=== PATIENT | male | born 1940 | race Caucasian/White ===

== ENCOUNTER 2017-08-07 06:33 | Observation (INO) | payer OTHER, MEDICARE ==
[2017-08-07] MEDS ORDERED: NS 1,000 ML IV ONE (06:45)
--- NOTE | 2017-08-07 06:47 | CPEKG ---
Heart Rate: 49 RR Interval: 1224 QRSD Interval: 86 QT Interval: 456 QTC Interval: 412 QRS [place]: 68 T Wave [place]: 60 EKG Severity - ABNORMAL ECG - EKG Impression: ATRIAL FLUTTER, A-RATE 306 Electronically Signed By: Renaldo Parson 07-Aug-2017 07:29:37
[2017-08-07 07:07] LABS: PLATELET COUNT 203 10^3/uL (150-400)
[2017-08-07 07:18] LABS: INR 1.05 (0.83-1.16); PROTIME(PATIENT) 13.9 SEC (12.0-15.0)
[2017-08-07] MEDS ORDERED: NS 500 ML IV ONE (07:18)
[2017-08-07] MEDS ORDERED: ONDANSETRON 4 MG/2 ML VIAL IVP ONE (07:18)
--- NOTE | 2017-08-07 07:25 | EDPHY ---
H & P Time Seen by Provider: 08/07/17 06:54 HPI/ROS: HPI Dizzy, weak. 76-year-old male by private vehicle with his . This patient reports that yesterday afternoon he started feeling"dizzy". He describes this as vertigo. He states he feels there is motion with there is no motion. He has had a difficult time walking because of this. He reports that when he woke up this morning he was achy all over particularly in his back in between his shoulder blades. He also states that he felt very fatigued and felt some chills. His vertigo continued this morning as well. He reports that it is not worse with head movement back in forth. He describes it is present when he is ambulating. He states that he has had a difficult time walking in a straight line and needs to support himself on the hallway wall. Denies headache. No focal weakness or altered sensation in his extremities. No change in vision. He has been nauseous but has not vomited. He also reports a recent exposure to ticks on his property within the last 2 days. He reports that he removed the sticks before the imbedded. ROS: Constitutional: No fever, as above. Eyes: No discharge. No changes in vision. ENT: No sore throat. No nasal congestion or rhinorrhea. Respiratory: No cough. No shortness of breath. Cardiac: No chest pain, no palpitations. Gastrointestinal: No abdominal pain, no vomiting, no diarrhea. As above. Genitourinary: No hematuria. No dysuria or increased frequency with urination. Musculoskeletal: No back pain. No neck pain. No myalgias or arthralgias. Skin: No rashes. Neurological: No headache. No focal weakness or altered sensation. As above. Past medical history: Prostatectomy, bladder cancer. He takes an aspirin daily. Otherwise he is not on any prescription medications. Social history: Drinks alcohol occasionally. Here with his . Nonsmoker. Physical Exam: General Appearance: Alert, no distress. Large man. This patient is responding to questions appropriately and in full sentences. This patient appears well-hydrated and well-nourished. Eyes: Pupils equal and round 3-2 mm bilaterally, no pallor or injection. No lid edema, erythema or injection. No nystagmus. No photophobia. ENT, Mouth: Mucous membranes are moist. The pharyngeal tissues are unremarkable. No edema or swelling. No asymmetry suggestive of abscess. No erythema or exudates. Respiratory: There are no retractions, lungs are clear to auscultation with good air movement bilaterally. Cardiovascular: Regular rate and rhythm. No murmur appreciated. Gastrointestinal: Abdomen is soft and nontender, no masses, bowel sounds normal. No focal tenderness at McBurney's point. No Wooten sign. Neurological: Motor sensory function is grossly intact. Cranial nerves are normal. Gait is slow and somewhat shuffling but he is able to walk in a straight line and his 's states that his gait is much improved in close to his baseline. Skin: Warm and dry, no rashes. Musculoskeletal: Neck is supple and nontender. No pain on flexion of his neck. Extremities are symmetrical. All joints range without pain or impingement. Psychiatric: No agitation. No depression. Database: EKG: EKG time is 6:45 a.m.; EKG shows a narrow complex regular probable a flutter with 5-1 av block verses sinus rhythm with a ventricular rate of 49. The MN, QRS, QT intervals are within normal limits. There are no ST-T wave changes indicative of ischemic or injury pattern. No evidence of right heart strain. Interpreted by me. Imaging: MRI of brain without contrast: No evidence of stroke. There is a subtle area involving the right mid brain and cathryn the could represent calcium a possibly hemorrhage. Reading radiologist recommends CT without contrast to further evaluate. Discussed results with staff radiologist Dr. Ra Lehman. Carotid artery Doppler ultrasounds: No hemodynamically significant stenosis of the carotid arteries. There is some plaque buildup. Right thyroid nodule is noted. Reading radiologist recommends follow-up imaging on this. Please see his report for further details. Case discussed with staff radiologist Dr. Serafin Hernandez. CT head without contrast: Negative. Results were discussed with staff radiologist Dr. Kobe Gonzalez. Procedures: Emergency department course: Vital signs reviewed. He is moderately hypertensive and bradycardic. Vital signs otherwise normal. IV was placed. He was placed on a equipment monitor phototypesetting. EKG obtained and reviewed by myself. He was started on IV normal saline with 500 cc to be given over the next hour. He will be given 4 mg of IV Zofran for nausea. He consents to MRI of brain and carotid Doppler imaging to assess for possible posterior distribution CVA. I discussed prophylaxis against Lyme and other tick-borne illnesses. I explained that these conditions were very rare in this area. He however would like prophylactic treatment. He was given a 1 time dose of 200 mg of doxycycline orally. 9:40 a.m., patient re-evaluated. Resting comfortably at this time. Repeat neurologic Assessment is nonfocal. ekg monitor currently shows narrow complex rhythm ventricular rate of 50. Results of emergency department workup discussed thoroughly with patient and family. His daughter is in the room and she is a former emergency department nurse here. Plan for admission secondary to atrial flutter with bradycardia discussed. All of their questions were answered. Hospitalist paged. Thyroid studies ordered. 9:45 a.m., spoke with on-call hospitalist, case discussed in detail. Patient accepted for admission by Dr. Camilo. Patient's remaining emergency department course under my care uneventful. Patient admitted to Dr. Camilo in stable condition. Differential Diagnosis: The differential diagnosis on this patient includes but is not limited to hypertensive encephalopathy, posterior CVA, peripheral vertigo. This represents a partial list of diagnoses considered. These considerations are based on history, physical exam, past history, reassessment and diagnostic testing. Smoking Status: Never smoked Constitutional: Initial Vital Signs Temperature (C) 36.6 C 08/07/17 06:42 Heart Rate 55 L 08/07/17 06:42 Respiratory Rate 16 08/07/17 06:42 Blood Pressure 162/124 H 08/07/17 06:42 O2 Sat (%) 96 08/07/17 06:42 O2 Delivery Mode Room Air Allergies/Adverse Reactions: No Known Allergies Allergy (Unverified 08/07/17 06:41) Home Medications: Medication Instructions Recorded Aspirin [Aspirin 81mg (*)] 08/07/17 Medical Decision Making - Diagnostics Imaging Results: Imaging Impressions Chest X-Ray 08/07/17 06:45 Impression: Portable chest negative for acute disease.. Brain MRI 08/07/17 07:19 Impression: 1. . Subtle gradient abnormality in the right midbrain and cathryn. Recommend noncontrast CT for further evaluation. 2. No acute cerebral infarction. Results discussed with Dr. Parson at 8:30 AM. Carotid Doppler Study 08/07/17 07:19 Impression: 1. Mild atherosclerotic disease bilateral carotid bulbs, left greater than right. 2. Velocities correlate to less than 30% diameter stenosis of the origin of the right internal carotid artery. 3. Velocities correlate to less than 30% diameter stenosis of the origin of the left internal carotid artery. 4. Bilateral vertebral arteries are patent with antegrade flow. 5. Right thyroid nodule measuring 2.1 cm. Recommend follow up ultrasound thyroid and ultrasound FNA biopsy. Measurement of carotid stenosis is based on velocity parameters that correlate the residual internal carotid diameter with [place] Symptomatic Carotid Endarterectomy Trial (NASCET) based stenosis levels. Findings and recommendations discussed with Emergency Department physician, Renaldo Parson MD at 9:09 a.m. on 08/07/2017. Final report concurs with initial preliminary interpretation. Head CT 08/07/17 08:38 Impression: Negative. No acute intracranial hemorrhage. Findings discussed with Emergency Department physician, Renaldo Parson MD at 08/07/2017 9:28. - Data Points Laboratory Results: Laboratory Results 08/07/17 06:56 08/07/17 06:56 08/07/17 08/07/17 08/07/17 07:07 06:56 06:56 WBC RBC Hgb Hct MCV MCH MCHC RDW Plt Count MPV Neut % (Auto) Lymph % (Auto) Mayes % (Auto) Eos % (Auto) Baso % (Auto) Nucleat RBC Rel Count Absolute Neuts (auto) Absolute Lymphs (auto) Absolute Monos (auto) Absolute Eos (auto) Absolute Basos (auto) Absolute Nucleated RBC Immature Gran % Immature Gran # PT 13.9 SEC SEC (12.0-15.0) INR 1.05 (0.83-1.16) APTT 28.7 SEC SEC (23.0-38.0) Sodium 146 mEq/L H mEq/L (135-145) Potassium 4.2 mEq/L mEq/L (3.3-5.0) Chloride 112 mEq/L H mEq/L (97-110) Carbon Dioxide 25 mEq/l mEq/l (22-31) Anion Gap 9 mEq/L mEq/L (8-16) BUN 19 mg/dL mg/dL (7-23) Creatinine 0.9 mg/dL mg/dL (0.7-1.3) Estimated GFR > 60 Glucose 97 mg/dL mg/dL (70-100) Calcium 9.0 mg/dL mg/dL (8.5-10.4) Magnesium 2.2 mg/dL mg/dL (1.6-2.3) Total Bilirubin 0.5 mg/dL mg/dL (0.1-1.4) Conjugated Bilirubin 0.2 mg/dL mg/dL (0.0-0.5) Unconjugated Bilirubin 0.3 mg/dL mg/dL (0.0-1.1) AST 17 IU/L IU/L (17-59) ALT 15 IU/L L IU/L (21-72) Alkaline Phosphatase 53 IU/L IU/L (38-126) POC Troponin I 0.00 ng/mL ng/mL (0.00-0.08) Total Protein 6.4 g/dL g/dL (6.3-8.2) Albumin 3.8 g/dL g/dL (3.5-5.0) 08/07/17 06:56 WBC 5.61 10^3/uL 10^3/uL (3.80-9.50) RBC 4.81 10^6/uL 10^6/uL (4.40-6.38) Hgb 14.1 g/dL g/dL (13.7-17.5) Hct 42.5 % % (40.0-51.0) MCV 88.4 fL fL (81.5-99.8) MCH 29.3 pg pg (27.9-34.1) MCHC 33.2 g/dL g/dL (32.4-36.7) RDW 13.1 % % (11.5-15.2) Plt Count 203 10^3/uL 10^3/uL (150-400) MPV 10.1 fL fL (8.7-11.7) Neut % (Auto) 61.1 % % (39.3-74.2) Lymph % (Auto) 30.5 % % (15.0-45.0) Mayes % (Auto) 6.4 % % (4.5-13.0) Eos % (Auto) 1.6 % % (0.6-7.6) Baso % (Auto) 0.2 % L % (0.3-1.7) Nucleat RBC Rel Count 0.0 % % (0.0-0.2) Absolute Neuts (auto) 3.43 10^3/uL 10^3/uL (1.70-6.50) Absolute Lymphs (auto) 1.71 10^3/uL 10^3/uL (1.00-3.00) Absolute Monos (auto) 0.36 10^3/uL 10^3/uL (0.30-0.80) Absolute Eos (auto) 0.09 10^3/uL 10^3/uL (0.03-0.40) Absolute Basos (auto) 0.01 10^3/uL L 10^3/uL (0.02-0.10) Absolute Nucleated RBC 0.00 10^3/uL 10^3/uL (0-0.01) Immature Gran % 0.2 % % (0.0-1.1) Immature Gran # 0.01 10^3/uL 10^3/uL (0.00-0.10) PT INR APTT Sodium Potassium Chloride Carbon Dioxide Anion Gap BUN Creatinine Estimated GFR Glucose Calcium Magnesium Total Bilirubin Conjugated Bilirubin Unconjugated Bilirubin AST ALT Alkaline Phosphatase POC Troponin I Total Protein Albumin Medications Given: Discontinued Medications Doxycycline Hyclate (Doxycycline Hyclate) 200 mg PO EDNOW ONE PRN Reason: Protocol Stop: 08/07/17 08:17 Last Admin: 08/07/17 09:04 Dose: 200 mg Sodium Chloride (Ns) 1,000 mls @ 0 mls/hr IV EDNOW ONE; Wide Open PRN Reason: Protocol Stop: 08/07/17 06:46 Last Admin: 08/07/17 07:05 Dose: 1,000 mls Sodium Chloride (Ns) 500 mls @ 1,000 mls/hr IV EDNOW ONE PRN Reason: Protocol Stop: 08/07/17 07:47 Last Admin: 08/07/17 09:20 Dose: Not Given Ondansetron HCl (Zofran) 4 mg IVP EDNOW ONE Stop: 08/07/17 07:19 Last Admin: 08/07/17 07:54 Dose: 4 mg Point of Care Test Results: Chemistry 08/07/17 07:07 POC Troponin I 0.00 ng/mL ng/mL (0.00-0.08) Departure - Departure Disposition: [facility] Acute Clinical Impression: Vertigo, Bradycardia, Atrial flutter, Lightheaded Referrals: Behzad Fulton MD [Primary Care Provider] - As per Instructions
[2017-08-07] MEDS ORDERED: DOXYCYCLINE HYCLATE 100 MG CAP/TAB PO ONE (08:16)
[2017-08-07] MEDS ORDERED: ONDANSETRON 4 MG/2 ML VIAL IVP PRN (15:02)
[2017-08-07] MEDS ORDERED: ACETAMINOPHEN 325 MG TAB PO PRN (15:02)
[2017-08-07] MEDS ORDERED: ONDANSETRON DISINTEGRATING 4 MG TAB PO PRN (15:02)
--- NOTE | 2017-08-07 17:20 | PDGENHP ---
History and Physical - Chief Complaint Acute dizziness - History of Present Illness Primary care provider: Dr. Fulton HPI: 76-year-old male presents with acute dizziness characterized as unsteadiness with mild room spinning exacerbated by positional changes including sitting backwards and sitting forwards, but not affected by head movements with onset of symptoms on the morning of presentation. The patient reports that on the day prior to presentation he had associated generalized weakness, fatigue, chills, headache, myalgias located in his mid back. On the day of presentation, he reports that his ambulation was impaired secondary to his constellation of symptoms as well as his dizziness, nearly resulting in a fall. He was able to steady himself by placing his hand on the wall. He did not experience any overt trauma. After re-presented to the emergency department , he was placed on supplemental oxygen, and he believes that many of his symptoms were somewhat alleviated with this intervention. He also reports that he was experiencing some nausea which was alleviated with Zofran p.o. 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 He denies any overt rashes, denies any overt fevers, denies any overt chest pain palpitations or shortness of breath. History Information - Allergies/Home Medication List Allergies/Adverse Reactions: No Known Allergies Allergy (Unverified 08/07/17 06:41) Home Medications: Aspirin [Aspirin 81mg (*)] 81 mg PO HS 08/07/17 [Last Taken 08/06/17] I have personally reviewed and updated: family history, medical history, social history, surgical history - Past Medical History hyperlipidemia Additional medical history: Prostate cancer. Bladder cancer with chemotherapy - Surgical History Additional surgical history: Total prostatectomy. Localized bladder surgery. 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, continues to bow [place] at elevation Review of Systems Review of Systems: ROS: 10pt was reviewed & negative except for what was stated in HPI & below Constitutional: Reports: chills, weakness Muscolosketal: Reports: muscle pain Neurological: Reports: headache, other (Dizziness) Physical Exam Physical Exam: Temp Pulse Resp BP Pulse Ox 36.9 C 65 16 128/70 H 12 L 08/07/17 15:47 08/07/17 15:47 08/07/17 15:47 08/07/17 15:47 08/07/17 15:47 O2 (L/minute) 95 Constitutional: no apparent distress, appears nourished, not in pain Eyes: PERRL, anicteric sclera, EOMI Ears, Nose, Mouth, Throat: moist mucous membranes, hearing normal, ears appear normal, no oral mucosal ulcers Cardiovascular: regular rate and rhythym, no murmur, rub, or gallop, No edema Respiratory: no respiratory distress, no rales or rhonchi, clear to auscultation Gastrointestinal: normoactive bowel sounds, soft, non-tender abdomen, no palpable masses, No distension Skin: warm, other (Nontender well-circumscribed lipoma on the right back without any overlying erythema), No rash Musculoskeletal: full muscle strength, other (Full range of motion the neck without any tenderness or meningismus, no tenderness to palpation over the vertebral bodies or paraspinal muscles) Neurologic: AAOx3, sensation intact bilaterally, CN II-XII Intact, No weakness, No facial droop Psychiatric: interacting appropriately, not anxious, not encephalopathic, thought process linear Lymph, Heme, Immunologic: other (2 cm nontender bilateral submandibular lymph nodes without any anterior posterior or cervical lymphadenopathy) Lab Data & Imaging Review 08/07/17 06:56 08/07/17 06:56 WBC 5.61 10^3/uL (3.80-9.50) 08/07/17 06:56 RBC 4.81 10^6/uL (4.40-6.38) 08/07/17 06:56 Hgb 14.1 g/dL (13.7-17.5) 08/07/17 06:56 Hct 42.5 % (40.0-51.0) 08/07/17 06:56 MCV 88.4 fL (81.5-99.8) 08/07/17 06:56 MCH 29.3 pg (27.9-34.1) 08/07/17 06:56 MCHC 33.2 g/dL (32.4-36.7) 08/07/17 06:56 RDW 13.1 % (11.5-15.2) 08/07/17 06:56 Plt Count 203 10^3/uL (150-400) 08/07/17 06:56 MPV 10.1 fL (8.7-11.7) 08/07/17 06:56 Neut % (Auto) 61.1 % (39.3-74.2) 08/07/17 06:56 Lymph % (Auto) 30.5 % (15.0-45.0) 08/07/17 06:56 [place] % (Auto) 6.4 % (4.5-13.0) 08/07/17 06:56 Eos % (Auto) 1.6 % (0.6-7.6) 08/07/17 06:56 Baso % (Auto) 0.2 % (0.3-1.7) L 08/07/17 06:56 Nucleat RBC Rel Count 0.0 % (0.0-0.2) 08/07/17 06:56 Absolute Neuts (auto) 3.43 10^3/uL (1.70-6.50) 08/07/17 06:56 Absolute Lymphs (auto) 1.71 10^3/uL (1.00-3.00) 08/07/17 06:56 Absolute Monos (auto) 0.36 10^3/uL (0.30-0.80) 08/07/17 06:56 Absolute Eos (auto) 0.09 10^3/uL (0.03-0.40) 08/07/17 06:56 Absolute Basos (auto) 0.01 10^3/uL (0.02-0.10) L 08/07/17 06:56 Absolute Nucleated RBC 0.00 10^3/uL (0-0.01) 08/07/17 06:56 Immature Gran % 0.2 % (0.0-1.1) 08/07/17 06:56 Immature Gran # 0.01 10^3/uL (0.00-0.10) 08/07/17 06:56 PT 13.9 SEC (12.0-15.0) 08/07/17 06:56 INR 1.05 (0.83-1.16) 08/07/17 06:56 APTT 28.7 SEC (23.0-38.0) 08/07/17 06:56 Sodium 146 mEq/L (135-145) H 08/07/17 06:56 Potassium 4.2 mEq/L (3.3-5.0) 08/07/17 06:56 Chloride 112 mEq/L (97-110) H 08/07/17 06:56 Carbon Dioxide 25 mEq/l (22-31) 08/07/17 06:56 Anion Gap 9 mEq/L (8-16) 08/07/17 06:56 BUN 19 mg/dL (7-23) 08/07/17 06:56 Creatinine 0.9 mg/dL (0.7-1.3) 08/07/17 06:56 Estimated GFR > 60 08/07/17 06:56 Glucose 97 mg/dL (70-100) 08/07/17 06:56 Calcium 9.0 mg/dL (8.5-10.4) 08/07/17 06:56 Magnesium 2.2 mg/dL (1.6-2.3) 08/07/17 06:56 Total Bilirubin 0.5 mg/dL (0.1-1.4) 08/07/17 06:56 Conjugated Bilirubin 0.2 mg/dL (0.0-0.5) 08/07/17 06:56 Unconjugated Bilirubin 0.3 mg/dL (0.0-1.1) 08/07/17 06:56 AST 17 IU/L (17-59) 08/07/17 06:56 ALT 15 IU/L (21-72) L 08/07/17 06:56 Alkaline Phosphatase 53 IU/L (38-126) 08/07/17 06:56 POC Troponin I 0.00 ng/mL (0.00-0.08) 08/07/17 07:07 Total Protein 6.4 g/dL (6.3-8.2) 08/07/17 06:56 Albumin 3.8 g/dL (3.5-5.0) 08/07/17 06:56 TSH 2.950 uIU/mL (0.465-4.680) 08/07/17 06:56 Free T4 0.86 ng/dL (0.59-2.19) 08/07/17 06:56 Free T3 3.57 pg/mL (2.77-5.27) 08/07/17 06:56 Visualized and Interpreted Chest x-ray results: Yes Chest X-Ray results: no infiltrate Visualized and Interpreted EKG results: Yes EKG Interpretation: Positive for: other (Sinus bradycardia, but was previously read as atrial flutter is most likely artifact) Assessment & Plan Assessment: 76-year-old male presenting with dizziness secondary to suspected viral syndrome Plan: 1. Dizziness. Symptoms consist of a combination of vertiginous as well as generalized weakness, most likely secondary to viral syndrome -carotid ultrasound demonstrating no significant stenosis -brain MRI demonstrating no evidence of CVA -EKG is not atrial flutter, I have discussed this with Dr. Trina Durand and we both agreed this is a sinus bradycardia with likely artifact -will monitor on telemetry overnight to ensure no tachy or [place] arrhythmias -will check orthostatics 2. Suspected viral syndrome. Acute, new problem this provider, further workup indicated. Constellation of symptoms include fatigue, chills, dizziness, myalgias, headache, all of which are most likely secondary to a viral syndrome -check respiratory viral panel -monitor evolution of symptoms and workup any significant focality 3. Thyroid nodule. Carotid ultrasound demonstrating an incidental 2.1 right- sided thyroid nodule -thyroid function test completely normal -calcium completely normal, suggesting this is not underlying parathyroid tumor -discussed with patient and , recommend outpatient ultrasound and fine- needle aspirate to be arranged by primary care provider 4. Suspected obstructive sleep apnea. Patient has not been overtly hypoxic throughout this hospitalization, and he does not require supplemental oxygen during the day -that being said, his habitus and history suggest that he may have sleep apnea, and I would recommend outpatient sleep study to be arranged through his primary care provider office -in the interim, the patient does not qualify or require supplemental oxygen, as the body's natural respiratory drive is 2 trigger of breath if the patient becomes apneic at night, thus making nocturnal hypoxia not a malignant condition 5. Hyperlipidemia. Reviewed outside records including most recent primary care provider labs demonstrating an LDL of 160, on 04/01/2017 -will recommend lipid lowering therapy to patient and his Diet. Regular Prophylaxis. High risk, Lovenox for Code. Full Disposition. Anticipated discharge 08/08, pending further workup of conditions as outlined above.
[2017-08-07] MEDS ORDERED: ASPIRIN 81 MG CHEWABLE TAB PO SCH (21:00)
[2017-08-08 07:58] LABS: PLATELET COUNT 194 10^3/uL (150-400)
[2017-08-08] MEDS ORDERED: ENOXAPARIN 40 MG/0.4 ML SYR SC SCH (09:00)
--- NOTE | 2017-08-08 10:07 | ASMTCASEMG ---
Living Arrangements What is your living Answers: With Spouse arrangement? Who do you live with? Type Of Residence What kind of residence do Answers: House you live in? Discharge Plan Comments Coordination Status Comments Notes: Pt is a 76 y/o man admitted for atrial flutter, bradycardia and lightheadedness. PT has been ordered and awaiting recommendations. Needs are TBD at this time. CM to follow. Plan: TBD Date Signed: 08/08/2017 10:06 AM Electronically Signed By:SHERICE Montoya
[2017-08-08 11:40] VITALS: BP 126/73
--- NOTE | 2017-08-08 14:38 | ECHO ---
[email or web address] [address] Main: [phone] Fax: Transthoracic Echocardiogram Name: MAGAN BARFIELD MR#: [id number] Study Date: 08/08/2017 Study Time: 01:47 PM Date of : 1940 Age: 76 year(s) Height: 182.9 cm (72 in.) Weight: 98.43 kg (217 lb.) BSA: 2.21 m2 Gender: Male Examination: Echo Indication: Eval LV Fx Image Quality: Contrast: Requested by: Naveen Camilo BP: 123 mmHg/73 mmHg Heart Rate: Rhythm: Indication: Eval LV Fx Procedure Staff Design Engineer: Marek Ro RDCS Reading Physician: Trina Durand MD Requesting Provider: Conclusions: Normal size left ventricle. No LV hypertrophy. Normal global systolic LV function. EF is 68 %. No regional wall motion abnormality. Grade 1 diastolic dysfunction (abnormal relaxation). Mildly dilated right ventricle. Normal RV function. No significant valvular disease. Unable to assess PA systolic pressure. No prior echo. Measurements: Chambers Valvular Assessment AV/MV Valvular Assessment TV/PV Normal Normal Normal Name Value Range Name Value Range Name Value Range Ao Zeinab (MM): 2.9 cm (2.2 cm-3.7 AV Vmax: 1.51 m/s (1 m/s-1.7 TR Vmax: 2.08 mm/s ( - ) cm) m/s) TR PGmax: 17 mmHg ( - ) IVSd (2D): 0.9 cm (0.6 cm-1.1 AV maxP mmHg ( - ) syst. PAP: 22 mmHg ( - ) cm) LVOT Vmax: 0.76 m/s (0.7 m/s-1.1 PV Vmax: 0.95 m/s (0.6 m/s-0.9 LVDd (2D): 4.5 cm (4.2 cm-5.9 m/s) m/s) cm) MV E Vmax: 0.68 m/s ( - ) PV PGmax: 4 mmHg ( - ) LVDs (2D): 2.8 cm (2.1 cm-4 MV A Vmax: 0.95 m/s ( - ) cm) MV E/A: 0.72 ( - ) LVPWd (2D): 1.0 cm (0.6 cm-1 cm) LVEF (2D): 68 (>=54 %) Continued Measurements: Chambers Valvular Assessment AV/MV Valvular Assessment TV/PV Name Value Name Value Name Value Patient: MAGAN BARFIELD Study Date: 08/08/2017 Page 1 of 2 01:47 PM LADs Lon.6 cm MV E' Septal: 0.05 m/s CVP (est.): 5 mmHg LA Area: 15.2 cm2 MV E/E' Septal: 14.80 LA Volume: 35 ml MV E/E' Lateral: 11.00 LA Volume Index: 15.8 ml/m2 Findings: Left Ventricle: Normal size left ventricle. No LV hypertrophy. Normal global systolic LV function. EF is 68 %. No regional wall motion abnormality. Grade 1 diastolic dysfunction (abnormal relaxation). Right Ventricle: Mildly dilated right ventricle. Normal RV function. Left Atrium: The left atrium is normal in size. Right Atrium: The right atrium is normal in size. Mitral Valve: The mitral valve is normal in appearance and function. Aortic Valve: The aortic valve is normal in appearance and function. There is no aortic valve regurgitation. Tricuspid Valve: The tricuspid valve appears normal. Pulmonic Valve: The pulmonic valve is normal in appearance and function. Aorta: The aorta is normal. Pericardium: No pericardial effusion. (No Signature Object) Patient: MAGAN BARFIELD Study Date: 08/08/2017 Page 2 of 2 01:47 PM [id number]
--- NOTE | 2017-08-08 15:55 | ASMTCMCOM ---
CM Note CM Note Notes: PT is recommending home w/ outpatient follow up. No other needs identified at this time. CM available for changes. Plan: Independent Date Signed: 08/08/2017 03:54 PM Electronically Signed By:SHERICE Montoya
--- NOTE | 2017-08-08 15:56 | ASMTLACE ---
LACE Length of stay for Answers: 1 day current admission Acuity / Level of Answers: No Care: Did the patient have an inpatient admission? Comorbidities - select Answers: Any tumor (including all that apply lymphoma or leukemia) # of Emergency department Answers: 1-2 visits in the last 6 months Score: 4 Date Signed: 08/08/2017 03:55 PM Electronically Signed By:SHERICE Montoya
--- NOTE | 2017-08-08 15:59 | PDDCSUM ---
Discharge Summary Discharge Summary: DISCHARGE SUMMARY FOLLOW-UP ITEMS: 1. Ultrasound-guided FNA of right thyroid nodule 2. Repeat liver panel in 6-8 weeks 3. Reassess for vertiginous symptoms 4. Order outpatient sleep study DATE OF ADMISSION: 08/07/2017 DATE OF DISCHARGE: 08/08/2017 DISCHARGE DIAGNOSES: 1. Suspected BPPV 2. Suspected viral syndrome 3. 2.1 cm right thyroid nodule 4. Suspected underlying sleep apnea 5. Chronic hyperlipidemia and mild carotid stenosis bilaterally CONSULTATIONS: Cardiology PROCEDURES / IMAGING: Echocardiogram demonstrating normal ejection fraction with normal wall motion, right ventricle mildly dilated with normal function, unable to assess pulmonary artery pressure, no significant valvular disease Brain MRI demonstrating no stroke Carotid ultrasound demonstrating 30% bilateral stenosis CHIEF COMPLAINT: Acute dizziness, headache, nausea, myalgias, chills SUBJECTIVE: Patient is feeling well at time discharge, he has not had any recurrence of his dizziness PHYSICAL EXAM ON DISCHARGE: Systolic blood pressure 100-120, heart rate 50-70, afebrile overnight, satting 96% on room air during his awake state, alert awake oriented x3, no apparent distress LABS ON DISCHARGE: ESR 2, CRP 7, creatinine 0.9, potassium 4.4, serum sodium 138, troponin negative x2, TSH 2.95, free T4 0.86, free T3 3.57, D-dimer 0.34 HOSPITAL COURSE BY PROBLEM: 1. Suspected BPPV. The patient's presenting symptom was dizziness, and this is most likely secondary to either BPPV or labyrinthitis. The patient reports that he has experienced this positional dizziness in the past, which would be more suggestive of BPPV, but this presentation seemed to be associated with symptoms of a viral precipitant, which would be more suggestive of labyrinthitis. He was ruled out for posterior circulatory defect with vertebral artery are ultrasounds, and was ruled out for CVA with brain MRI. He was ruled out for significant valvular abnormality with an echocardiogram, and was ruled out for malignant arrhythmia with telemetry monitoring demonstrating normal sinus mechanism during the entirety of his stay. He occasionally had PACs, but he had no evidence of atrial flutter on EKG or on telemetry. It should be noted that the a presenting EKG machine read indicated atrial flutter , but this is inaccurate, and has been personally interpreted by both myself and Dr. Durand. The patient will receive a prescription for as needed meclizine, and he should use this if he experiences intermittent recurrent symptoms. He should also follow up with his primary care provider for this issue. 2. Suspected viral syndrome. The patient presented with a constellation of symptoms most likely secondary to a mild viral syndrome, but it was not a particular precipitant with a negative respiratory viral panel and negative inflammatory markers. Most likely the cause was self-limited and did not result in significant infection. The patient is currently asymptomatic in the process has most likely completely resolved. 3. Suspected obstructive sleep apnea. The patient had intermittent episodes of hypoxia while sleeping, and has a strong history of snoring as well as recommendations from his primary care provider to undergo sleep study. We also recommend outpatient sleep study and we have educated the patient that treatment for possible sleep apnea will most likely result in significant improvement in daytime fatigue. 4. Thyroid nodule. Neck ultrasound for the carotids incidentally found 2.1 cm right thyroid nodule, and it warrants ultrasound-guided FNA. Recommend that this be performed as an outpatient. Thyroid function tests were unremarkable. 5. Chronic hyperlipidemia. Review of patient's outside lipid panel demonstrates an uncontrolled hyperlipidemia and his ultrasounds demonstrate mild carotid stenosis. Consequently, Dr. Durand and I recommended initiation of statin, the patient is interested in starting receive a statin 5 mg daily. He should have repeat lipid panel approximately 6-8 weeks. DISCHARGE MEDICATIONS: Please see official discharge medication reconciliation sheet in chart , continue home dose aspirin, add receive a statin 5 mg daily, add as needed meclizine. DISCHARGE INSTRUCTIONS: Please follow up with primary care provider next week and follow up the above- mentioned items.
--- NOTE | 2017-08-08 16:06 | GCON ---
[f rep st] CONSULTATION DATE OF CONSULTATION: 08/08/2017 CHIEF COMPLAINT: Dizziness. HISTORY OF PRESENT ILLNESS: We were asked by Dr. Camilo to visit with the patient. The patient is a pleasant 76-year-old male with dyslipidemia, untreated sleep apnea. He was brought to the ER by his family yesterday with 2 days of worsening dizziness. He felt very off balance when he tried to walk . He did not actually fall. He did not have syncope. He just felt very dizzy. He was not having c hest pain, dyspnea, or palpitations. He did have a little bit of a headache and felt slightly nausea loc. He has not had problems with lower extremity swelling. He had extensive brain imaging in the ER without evidence of stroke. His heart rate was on the low s clementina at about 50, but the rhythm was sinus. He has had negative cardiac enzymes. He does report that several days prior, he noticed some ticks on his body. He did not actually have a tick bite that he could see. In the ER, he did receive doxycycline prophylaxis. REVIEW OF SYSTEMS: A full 10-point review of systems was performed and is negative, except that whic h is outlined in the History of Present Illness. ALLERGIES: No known drug allergies. PAST MEDICAL HISTORY: 1. Sleep apnea, which the patient has previously elected not to treat. 2. Dyslipidemia. 3. Thyroid nodule discovered on recent imaging. 4. Bladder cancer. 5. History of prostatectomy. 6. Vre-[id number] carotid disease. OUTPATIENT MEDICATIONS: Aspirin 81 mg daily. SOCIAL HISTORY: The patient is . His family is involved in his care. His daughter is at the bedside. Does not smoke cigarettes. Drinks alcohol in moderation. FAMILY HISTORY: Not applicable to the current case. PHYSICAL EXAM: VITAL SIGNS: Blood pressure 126/73. He was not orthostatic by vital signs yesterday evening. Heart rate has been 50s to 70s. Oxygen saturation 94% on room air. He is afebrile. GENE RAL: Well-appearing older male in no acute distress. HEENT: Sclerae are clear and free of jaundice . Mucous membranes are moist. Normocephalic, atraumatic. CARDIOVASCULAR: JVP less than 10. Carot ids equal and 2+, without bruit. Regular rate and rhythm, without murmur, rub, or gallop. LUNGS: C lear, without wheeze, rhonchi, or rales. ABDOMEN: Soft, nontender, nondistended, without bruits, ma sses, hepatosplenomegaly. EXTREMITIES: Warm and well perfused, without cyanosis, clubbing, or edema . NEURO: Alert and oriented x3, without gross focal neurologic deficits. Appropriate mood and affe ct. LABORATORY DATA: CBC is essentially normal. ESR is 2. D-dimer is negative. INR is normal. Compre hensive metabolic panel is fairly normal. ER troponin and followup troponin are both negative. TSH, free T4 and free T3 are normal. CRP is 7.2. EKG reviewed by me shows sinus bradycardia, without ischemic changes. Chest x-ray reviewed by me shows no acute cardiopulmonary process. Echocardiogram reviewed by me: Normal LV size and systolic function, without regional wall motion ab normality, mildly dilated right ventricle with normal RV systolic function. No significant valvular disease. Unable to assess PA systolic pressure. Brain MRI: There is a subtle gradient abnormality in the right midbrain and cathryn. No acute stroke. Followup head CT: No acute findings. Carotid Doppler: Mild plaquing, without flow-limiting stenosis. Antegrade flow in bilateral vertebr al arteries. Incidentally noted right thyroid nodule. ASSESSMENT AND PLAN: A 76-year-old male with untreated sleep apnea, dyslipidemia, [id number] carotid disease. He presents with a couple of days of symptoms that sound most consistent with verti go. He has had negative troponins, a fairly unremarkable echo, except for mild RV dilation, which I think can be explained by his sleep apnea. He has had some sinus bradycardia and some sinus rhythm, and no significant arrhythmia on telemetry. 1. Dizziness: Most likely vertigo. No further cardiac testing at this time. Could see ENT as an o utpatient if symptoms recur. 2. Sleep apnea: He apparently was having desaturations and somnolence in the ER. He agrees to outp atient evaluation and management of this. 3. Dyslipidemia: Apparently a recent LDL was 160. He does have plaquing in his carotids. I would recommend primary prevention statin. LDL was 160 in March. He does have mild carotid artery plaq uing. I would recommend primary prevention statin. This can be initiated as an outpatient. 4. Thyroid nodule: This was seen on carotid ultrasound. He will have outpatient followup for this. Thank you for allowing us to participate in the patient's care. We will sign off. Please call with questions or concerns. /[id number]/MODL
== END 2017-08-08 16:25 | disposition home or self-care (01) ==
LOC: F2W 13:40
PROVIDERS: ADMIT Internal Medicine; ATTEND Internal Medicine
DX: R42 Dizziness and giddiness (principal); B34.9 Viral infection, unspecified; G47.33 Obstructive sleep apnea (adult) (pediatric); E04.1 Nontoxic single thyroid nodule; E78.5 Hyperlipidemia, unspecified; I25.10 Atherosclerotic heart disease of native coronary artery without angina pectoris; I65.23 Occlusion and stenosis of bilateral carotid arteries; Z85.51 Personal history of malignant neoplasm of bladder; Z85.46 Personal history of malignant neoplasm of prostate; Z90.79 Acquired absence of other genital organ(s); Z79.82 Long term (current) use of aspirin
CPT/HCPCS: 70450; 70551; 71045; 93005; 93306; 93880; 96361; 96374; 97116; 97161; 99285; G0378; G8978; G8979; G8980; J1650; J2405; 84481-90; 84484-PO

== ENCOUNTER → 2017-08-18 | Outpatient (CLI) | payer OTHER, MEDICARE ==
[~2017-08-18] MED LIST: LIDOCAINE 1% 300 MG/30 ML SDV ONE
== END ==
LOC: FIMAGING 07:56
PROVIDERS: ATTEND Internal Medicine
PROC: 0GBH3ZX Excision of Right Thyroid Gland Lobe, Percutaneous Approach, Diagnostic (ICD-10-PCS; principal; 2017-08-18)
DX: E04.1 Nontoxic single thyroid nodule (principal)